=== PATIENT | female | born 1955 | race Caucasian/White ===

== ENCOUNTER → 2020-11-09 10:06 | Outpatient (REF) | payer OTHER, SELFPAY | LOC: ANHLAB 10:06 | PROVIDERS: PCP Family Medicine; Visit Provider Nurse Practitioner | DX: D49.2 Neoplasm of unspecified behavior of bone, soft tissue, and skin (principal); L82.1 Other seborrheic keratosis; L81.4 Other melanin hyperpigmentation; L57.0 Actinic keratosis | CPT/HCPCS: 88305 ==

== ENCOUNTER → 2020-11-30 13:03 | Outpatient (REF) | payer OTHER, SELFPAY | LOC: ANHLAB 13:03 | PROVIDERS: PCP Family Medicine; Visit Provider Nurse Practitioner | DX: L82.1 Other seborrheic keratosis (principal) | CPT/HCPCS: 88305 ==

== ENCOUNTER → 2022-02-05 10:12 | Outpatient (CLI) | payer OTHER, SELFPAY ==
--- NOTE | ~2022-02-05 | MM_ITS ---
EXAMINATION: MM screening stephy BI w guillermo HISTORY: Screening mammogram, family history of breast cancer in her sister. TECHNIQUE: Craniocaudal and mediolateral oblique 3-D tomosynthesis images were obtained and synthetic 2-D images were generated. CAD analysis was submitted and interpreted. COMPARISON: No prior mammogram is available for comparison at this institution. BREAST PARENCHYMAL COMPOSITION: The breasts are heterogeneously dense, which may obscure small masses . FINDINGS: No suspicious mass, calcification, or architectural distortion are identified in either iveth ast to suggest malignancy. IMPRESSION: 1. No mammographic evidence of malignancy. 2. Recommend routine screening mammography in one year. BI-RADS Category 1: Negative Reviewed, dictated and finalized at location A. NESS LAW PROFESSOR
== END ==
PROVIDERS: PCP Family Medicine; Visit Provider Physician Assistant Medical
DX: Z12.31 Encounter for screening mammogram for malignant neoplasm of breast (principal)
CPT/HCPCS: 77063; 77067

== ENCOUNTER → 2022-02-08 12:23 | Outpatient (CLI) | payer OTHER, SELFPAY ==
--- NOTE | ~2022-02-08 | DEXA_ITS ---
Bone Density Report Name: FRIDA RUBY Age: 66 Sex: Female Ethnicity: White Date of : 1955 Indication: postmenopausal; screening for osteoporosis; height loss; asthma or emphysema; hysterectomy; Referring Provider: Neda Perkins Study: Bone densitometry was performed. Exam Date: February 08, 2022 Accession number: [id number] Bone Density: Region BMD T-score Z-score Classification AP Spine (L3, L4) 1.128 0.2 2.3 Normal Femoral Neck (Left) 0.797 -0.5 1.2 Normal Total Hip (Left) 1.126 1.5 2.9 Normal Femoral Neck (Right) 0.831 -0.2 1.5 Normal Total Hip (Right) 1.028 0.7 2.1 Normal Total Hip Mean 1.077 1.1 2.5 Normal World Health Organization criteria for BMD impression classify patients as: Normal (T-score at or above -1.0), Osteopenia (T-score between -1.0 and -2.5), or Osteoporosis (T-score at or below -2.5). 10-year Fracture Risk: FRAX not reported because: All T-scores for Spine Total, Hip Total, Femoral Neck at or above -1.0 Previous Exams: Region Exam Age BMD T-score BMD Change BMD Change Date g/cm2 vs Baseline vs Previous AP Spine(L3, L4) 02/08/2022 66 1.128 0.2 0.031* 0.031* 07/23/2016 60 1.098 0.0 Total Hip(Left) 02/08/2022 66 1.126 1.5 0.013 0.013 07/23/2016 60 1.114 1.4 Total Hip(Right) 02/08/2022 66 1.028 0.7 -0.026 -0.026 07/23/2016 60 1.054 0.9 *Denotes significance at 95% confidence level, LSC for AP Spine = 0.022 g/cm2, LSC for Total Hip = 0.027 g/cm2 Clinical Information Provided by Patient: Has the following medical conditions: Asthma or Emphysema, Hysterectomy Patient maximum height was 59.5 Menopause Age: 54 No regular weight bearing exercise Does not regularly consume dairy products Drinks caffeinated beverages Onset of menses at age 9 Number of children 2 Impression: The patient has normal bone mass. No significant bone loss was observed. Discussion: BONE DENSITY IS ABOVE THE MINIMUM DESIRABLE LEVEL AT ALL SKELETAL SITES TESTED. This patient?s bone mineral density is above the minimum desirable level (T-score -1.0 or better) at all sites measured. The patient should follow a healthful lifestyle (good nutrition with adequate calcium and vitamin D, and appropriate weight-bearing exercise). Follow-Up: Consider repeating this study in 5 years or sooner if there is some new clinical indication. Reported by: [facility] on
== END ==
PROVIDERS: PCP Family Medicine; Visit Provider Physician Assistant Medical
DX: Z13.820 Encounter for screening for osteoporosis (principal); Z78.0 Asymptomatic menopausal state
CPT/HCPCS: 77080

== ENCOUNTER → 2022-02-21 10:15 | Outpatient (CLI) | payer OTHER, SELFPAY ==
--- NOTE | ~2022-02-21 | XR_ITS ---
Right Knee Technique: AP, lateral, and sunrise views were obtained. Clinical History: Pain Findings: No fracture or dislocation is seen. Moderate tricompartmental degenerative changes present, with extensive osteophyte formation. Soft tissues are unremarkable. No joint effusion is seen. Impression: Moderate tricompartmental osteoarthritis. No acute fracture or dislocation. Reviewed, dictated and finalized at location [] ICAL SERVICES TECH Impression: Moderate tricompartmental osteoarthritis. No acute fracture or dislocation.
== END ==
PROVIDERS: PCP Family Medicine; Visit Provider Nurse Practitioner Family
DX: M17.11 Unilateral primary osteoarthritis, right knee (principal)
CPT/HCPCS: 73562

== ENCOUNTER 2022-05-08 11:00 | Outpatient (RCR) | payer MEDICARE, SELFPAY ==
--- NOTE | 2022-03-13 11:54 | PTOPEVAL1 ---
Assessment and note entered by Adriana Phillips, PT, DPT Evaluation Information Assessment Status Evaluation Diagnosis R knee pain Onset 2 months Subjective Information Pt states she has a lot of knee pain, she states in the last couple of days this has gotten better. She states she did not initial think it was arthritis because her pain increases as the day goes on. She states she mainly has pain in the knee but sometimes it radiates either up to the thigh or down to the calf from the knee. She states household distances are tolerable but anything greater than this her pain starts to increase. Pt reports she can sit for as long as she wants, standing longer than 10 mins starts to increase her pain to where she needs to sit down. She reports 1/10 pain currently and 10/10 at the worst in the last week. She states she would like to be able to walk further, have less pain, and be able to stand/walk for 30-60 mins. Reported Pain Level Pain Score 1: Self Report Assessment PT Clinical Summary Argelia Francois) presents to therapy today for her initial evaluation with a diagnosis R knee pain. Today she demonstrates decreased active knee flexion and extension compared to normal and to her uninvolved side, active motion is currently 0 - -10 - 90. She demonstrates good strength through manual muscle testing but decreased functional strength presented by significant gait deviations, increase UE support needed for safe stair ambulation, inability to perform a functional squat, and poor walking and standing tolerance. Skilled physical therapy services are indicated to address the deficits noted above, to manage pain, and to improve functional mobility to promote optimal independance. Plan of Care Interventions Electrical Stimulation,Gait Training,Hot Pack/Cold Pack,Manual Therapy,Neuro Re-education,Patient/ Caregiver Educati,Therapeutic Activities, Therapeutic Exercise,Ultrasound PT Services Indicated Yes Treatment Frequency and 2x/wk for 4 wks Duration These treatments will address the objective and functional deficits as defined above. The patient will be advanced safely and appropriately in order for the patient to progress towards his/her prior level of function. Additional exercises will be introduced and as well as a comprehensive home exercise program upo
--- NOTE | 2022-04-10 09:54 | PTOPPROG ---
Assessment and note entered by Adriana Phillips, PT, DPT Evaluation Information Assessment Status Progress Diagnosis R knee pain Onset 2 months Subjective Information Pt states things are going well and she can already tell improvement. She states getting up from a chair is easier, her pain is less intense and less frequency. She states there are some days where she still needs to rest more and needs to ice her knees after doing a lot of work, but this is becoming less frequent as well. She states she can stand for at least 30 min before needing to sit. She reports improved confidence with walking on uneven surfaces and stepping up on curbs. Pt reports 40% improvement in overall symptoms. Assessment PT Clinical Summary Argelia Yip presents to therapy today for her progress report following 7 visits of skilled therapy to treat her larisa knee pain. Today she demonstrates minimal changes in active and passive knee ROM but has made some improvement in her knee strength. She demonstrates improved functional strength with improved times on her 5xSTS and improved distance during her 2 min walk test. She continues to have decreased balance from expected. Continuation of skilled physical therapy services are indicated to address the remaining deficits, to continue to improve standing and walking tolerance, and to promote unlimited functional mobility. Plan of Care Interventions Electrical Stimulation,Gait Training,Hot Pack/Cold Pack,Manual Therapy,Neuro Re-education,Patient/ Caregiver Educati,Therapeutic Activities, Therapeutic Exercise,Ultrasound PT Services Indicated Yes Treatment Frequency and 1x/wk for 4 wks Duration These treatments will address the objective and functional deficits as defined above. The patient will be advanced safely and appropriately in order for the patient to progress towards his/her prior level of function. Additional exercises will be introduced and as well as a comprehensive home exercise program upon discharge, if needed, ?to ensure carryover of functional gains achieved in the clinic. This treatment plan has been reviewed and agreement upon by the patient.
--- NOTE | 2022-04-11 10:06 | PCPTNOTE ---
Patient called to say she could not make it to appointment.
--- NOTE | 2022-05-01 08:58 | PCPTNOTE ---
Patient canceled this date because she is doing well and states she will come back for reeval.
--- NOTE | 2022-05-08 11:37 | PTOPDC ---
Assessment and note entered by Adriana Phillips, PT, DPT Evaluation Information Assessment Status Discharge Diagnosis R knee pain Onset 2 months Subjective Information Pt states she is doing great. She states she has been walking on the treadmill 20 mins at a time, 5 -6 days a week. She states she was up on her feet for 3 hours straight over the weekend and her pain increased after that. Reported Pain Level Pain Score 1: Self Report Assessment PT Clinical Summary Argelia Yip presents to therapy today for her progress report following 9 visits of skilled therapy to treat her R knee pain. Today she follows up after 3 weeks of participation in her HEP IND. She states she is progressing well and seeing slow improvements. She has progressed well towards her therapy goals and now has a consistent exercise routine. She will be discharged at this time. Plan of Care PT Services Indicated No Treatment Frequency and to be discharged Duration
== END 2022-05-08 13:39 | disposition home or self-care (01) ==
LOC: ANHGOSHPT 11:00
PROVIDERS: PCP Family Medicine; Visit Provider Nurse Practitioner Family
DX: M25.569 Pain in unspecified knee (principal)
CPT/HCPCS: 97110; 97112; 97140; 97161; 97530

== ENCOUNTER 2022-11-19 08:00 | Outpatient (NON) | payer MEDICARE, SELFPAY | END 2022-11-19 08:01 | disposition home or self-care (01) | LOC: ANHLAB 11-20 12:28 | PROVIDERS: PCP Family Medicine; Visit Provider Nurse Practitioner | DX: D23.5 Other benign neoplasm of skin of trunk (principal) | CPT/HCPCS: 88305 ==

== ENCOUNTER 2023-06-11 14:08 | Outpatient (CLI) | payer MEDICARE, SELFPAY ==
--- NOTE | ~2023-06-11 | MM_ITS ---
EXAMINATION: MM screening stephy BI w guillermo HISTORY: Screening TECHNIQUE: Craniocaudal and mediolateral oblique 3-D tomosynthesis images were obtained and synthetic 2-D images were generated. CAD analysis was submitted and interpreted. COMPARISON: 02/05/2022 BREAST PARENCHYMAL COMPOSITION: Dense: The breasts are heterogeneously dense, which may obscure small masses FINDINGS: There is no evidence of suspicious mass, calcification, or architectural distortion to sugg est malignancy in either breast. There has been no suspicious interval change. IMPRESSION: 1. No mammographic evidence of malignancy. 2. Recommend routine screening mammography in one year. BI-RADS Category 1: Negative Reviewed, dictated and finalized at location A.
== END 2023-06-11 14:09 ==
LOC: MICIMG 14:09
PROVIDERS: PCP Physician Assistant Medical; Visit Provider Physician Assistant Medical
DX: Z12.31 Encounter for screening mammogram for malignant neoplasm of breast (principal)
CPT/HCPCS: 77063; 77067

== ENCOUNTER 2024-03-24 11:10 | Outpatient (CLI) | payer MEDICARE, SELFPAY ==
--- NOTE | ~2024-03-24 | US_ITS ---
BILATERAL LOWER EXTREMITY VENOUS ULTRASOUND Ordering provider: Neda Perkins, PAC History: . M79.89 - Other specified soft tissue disorders . Comparison: None. FINDINGS: RIGHT LOWER EXTREMITY VEINS: --COMMON FEMORAL: Patent and free of thrombus. Normal compressibility, phasic flow and augmentation. --PROXIMAL SUPERFICIAL FEMORAL: Patent and free of thrombus. Normal compressibility, phasic flow and augmentation. --DISTAL SUPERFICIAL FEMORAL: Patent and free of thrombus. Normal compressibility, phasic flow and au gmentation. --POPLITEAL: Patent and free of thrombus. Normal compressibility, phasic flow and augmentation. --POSTERIOR TIBIAL: Patent and free of thrombus. Normal compressibility, phasic flow and augmentation . LEFT LOWER EXTREMITY VEINS: --COMMON FEMORAL: Patent and free of thrombus. Normal compressibility, phasic flow and augmentation. --PROXIMAL SUPERFICIAL FEMORAL: Patent and free of thrombus. Normal compressibility, phasic flow and augmentation. --DISTAL SUPERFICIAL FEMORAL: Patent and free of thrombus. Normal compressibility, phasic flow and au gmentation. --POPLITEAL: Patent and free of thrombus. Normal compressibility, phasic flow and augmentation. --POSTERIOR TIBIAL: Patent and free of thrombus. Normal compressibility, phasic flow and augmentation . IMPRESSION: Negative bilateral lower extremity venous US. No deep vein thrombosis. Reviewed, dictated and finalized at location A. RLOCKING PAVEMENT INSTALLER
== END 2024-03-24 11:11 | disposition home or self-care (01) ==
PROVIDERS: PCP Family Medicine; Visit Provider Physician Assistant Medical
DX: M79.89 Other specified soft tissue disorders (principal)
CPT/HCPCS: 93970

== ENCOUNTER 2024-07-31 08:14 | Outpatient (CLI) | payer MEDICARE, SELFPAY ==
--- NOTE | ~2024-07-31 | MM_ITS ---
EXAMINATION: MM screening stephy BI w guillermo HISTORY: Screening TECHNIQUE: Craniocaudal and mediolateral oblique 3-D tomosynthesis images were obtained and synthetic 2-D images were generated. CAD analysis was submitted and interpreted. COMPARISON: Comparison to multiple prior studies sequentially, with oldest reviewed study dated 01/09. BREAST PARENCHYMAL COMPOSITION: Dense: The breasts are heterogeneously dense, which may obscure small masses FINDINGS: There is no evidence of suspicious mass, calcification, or architectural distortion to sugg est malignancy in either breast. There has been no suspicious interval change. IMPRESSION: 1. No mammographic evidence of malignancy. 2. Recommend routine screening mammography in one year. BI-RADS Category 1: Negative Reviewed, dictated and finalized at location A.
== END 2024-07-31 08:15 | disposition home or self-care (01) ==
LOC: MICIMG 08:16
PROVIDERS: PCP Family Medicine; Visit Provider Family Medicine
DX: Z12.31 Encounter for screening mammogram for malignant neoplasm of breast (principal)
CPT/HCPCS: 77063; 77067

== ENCOUNTER 2025-02-02 01:35 | Day surgery (SDC) | payer MEDICARE, SELFPAY ==
[2025-01-24 13:30] VITALS: BMI 50.7
--- OUTSIDE RECORDS SUMMARY | 2025-02-02 01:38 | XMS_ITS | Clinical Summary ---
Author Organization [facility] Administrative Offices Address [address] [place] [address] Care Team Providers Care Director Market Intelligence Name Role Phone Unavailable Primary Care Provider Unavailabl e Social History Tobacco Use Types Packs/Day Years Used Date Smoking Tobacco: Never Assessed Comments Unknown Sex and Gender Information Value Date Recorded Sex Assigned at Not on file Legal Sex Female 2:38 PM CDT Gender Identity Not on file Sexual Orientation Not on file Plan of Treatment Health Maintenance Due Date Last Done Comments DTAP/TDAP/TD VACCINES (1 - Tdap) 1973 COLORECTAL SCREENING 10/08/1999 Colorectal Cancer Screening 10/08/1999 FIT-DNA Q 3 years 10/08/1999 FIT/FOBT Q 1 year 10/08/1999 Flex Sig/CT Colonography Q 5 years 10/08/1999 PNEUMOCOCCAL VACCINE 50+ YEARS (1 of 1 - PCV) 10/08/19 05 ZOSTER VACCINE (1 of 2) 2004 BREAST CANCER SCREENING 08/21/2019 08/20/2018 OSTEOPOROSIS SCREENING 10/08/2019 INFLUENZA VACCINE (#1) 2024 RSV VACCINE (60+ or ) (1 - 1-dose 75+ series) 2029 Procedures Procedure Name Priority Date/Time Associated Diagnosis Comments MAMMO SCREEN BILAT W OR WO CAD Routine 08/20/2018 11:30 AM CDT Visit for screening mammogram from Last 3 Months or Most Recently Relevant to Health Maintenance Results * MAMMO SCREEN BILAT W OR WO CAD (08/20/2018 11:30 AM CDT) Anatomical Region Laterality Modality Breast Bilateral Mammography 08/20/2018 11:3 0 AM CDT Addenda Addendum by Mg Saunders MD on 08/28/2018 7:10 AM CDT ADDENDUM: Outside studies made available for review from [facility] in [facility] dated 07/11/2015, 07/11/2011, 01/12/2010 and 10/21/2008. FINDINGS: The parenchymal pattern of the breasts is unchanged from the previous studies with no concerning developing dominant masses, microcalcifications or focal areas of architectural distortion. IMPRESSION: 1. No concerning developing abnormality identified. OVERALL FINAL ASSESSMENT: BI-RADS CATEGORY 1: Negative RECOMMENDATIONS: 1. Recommend annual mammography. Impressions 08/25/2018 8:11 AM CDT IMPRESSION: 1. Need outside comparisons. OVERALL FINAL ASSESSMENT: BI-RADS CATEGORY 0: Incomplete: Needs prior mammograms for comparison. RECOMMENDATIONS: 1. Recommend obtain outside studies for comparison. An addendum will be dictated when these films become available. Narrative 08/25/2018 8:11 AM CDT BILATERAL SCREENING DIGITAL MAMMOGRAM WITH CAD DATE: 08/20/2018 11:30 AM DICTATION LOCATION: [facility] HISTORY: Routine yearly screening exam. TECHNIQUE: Standard images were obtained of both breasts on a digital system. CAD was utilized. COMPARISON: None available. BREAST COMPOSITION: Heterogeneously dense, which limits the sensitivity of mammography. FINDINGS: Comparison will be obtained to assure stability of the parenchymal pattern. An addendum will be dictated when these films are made available. Procedure Note Mg Saunders MD - 08/25/2018 BILATERAL SCREENING DIGITAL MAMMOGRAM WITH CAD DATE: 08/20/2018 11:30 AM DICTATION LOCATION: [facility] HISTORY: Routine yearly screening exam. TECHNIQUE: Standard images were obtained of both breasts on a digital system. CAD was utilized. COMPARISON: None available. BREAST COMPOSITION: Heterogeneously dense, which limits the sensitivity of mammography. FINDINGS: Comparison will be obtained to assure stability of the parenchymal pattern. An addendum will be dictated when these films are made available. IMPRESSION: 1. Need outside comparisons. OVERALL FINAL ASSESSMENT: BI-RADS CATEGORY 0: Incomplete: Needs prior mammograms for comparison. RECOMMENDATIONS: 1. Recommend obtain outside studies for comparison. An addendum will be dictated when these films become available. us Maynorgermán Garcia MD MAMMO ORDERABLES Edited Result - Final from Last 3 Months or Most Recently Relevant to Health Maintenance Insurance [facility] BLUE ACCESS CHOICE
--- OUTSIDE RECORDS SUMMARY | 2025-02-02 01:38 | XMS_ITS | Clinical Summary ---
Author Organization [facility] Address [address], [address] [address] Phone Care Team Providers Care Cloth Printer Helper Name Role Phone GregorioNedae Primary Care Provider [phone] Allergies No known active allergies Medications lisinopril (PRINIVIL, ZESTRIL) 10 MG Tablet Take 10 mg by mouth daily. Active ALBUTEROL IN take by inhalation. Active Fluticasone Furoate-Vilanter ol (BREO ELLIPTA IN) take by inhalation. Active Family History Medical History Relation Name Comments Cancer Maternal Aunt breast Cancer Maternal Grandmother uterine Cancer Sister breast Relation Name Status Comments Maternal Aunt Maternal Grandmother Sister Social History Tobacco Use Types Packs/Day Years Used Date Smoking Tobacco: Former Cigarettes 0.5 25 0 04/25/1992 - 04/25/2017 Smokeless Tobacco: Never Comments:quit in 2007 Alcohol Use Standard Drinks/Week Comments Yes 0 (1 standard drink = 0.6 oz pur e alcohol) one drink every few months Comments Unknown Sex and Gender Information Value Date Recorded Sex Assigned at Not on file Legal Sex Female 2:11 PM BI CONSULTANT Gender Identity Not on file Sexual Orientation Not on file Occupation Industry Job Start Date Job End Date Works at [employer] Not on file Not on file Not on file Last Filed Vital Signs Vital Sign Reading Time Taken Comments Blood Pressure 121/60 04/25/2017 9:06 AM BI CONSULTANT Pulse 72 04/25/2017 7:45 AM BI CONSULTANT Temperature 36 C (96.8 F) 04/25/2017 9:06 AM BI CONSULTANT Respiratory Rate 25 04/25/2017 9:06 AM BI CONSULTANT Oxygen Saturation 97% 04/25/2017 9:06 AM BI CONSULTANT Inhaled Oxygen Concentration - - Weight 57.2 kg (126 lb) 04/21/2017 3:00 PM BI CONSULTANT Height 152.4 cm (5') 04/21/2017 3:00 PM BI CONSULTANT Body Mass Index 24.61 04/21/2017 3:00 PM BI CONSULTANT Plan of Treatment Health Maintenance Due Date Last Done Comments Hepatitis C Virus (HCV) Screening 1955 TdaP Immunization 1955 Cologuard 10/08/1999 Colonoscopy 10/08/1999 Colorectal Cancer Screening 10/08/1999 Immunochemical Fecal Occult Blood 10/08/1999 Pneumococcal Immunization (5 0+ years) (1 of 1 - PCV) 2004 Zoster Immunization (1 of 2) 2004 Influenza Immunization (#1) 2024 SARS-COV-2 Immunization (1 - season) 2024 Respiratory Syncytial Virus (RSV) Immunization (Adult) (1 - 1-dose 75+ series) 2029 Hepatitis B Immunization Aged Out No longer eligible based on patient's age to complete this topic Human Papillomavirus (HPV) Immunization Aged Out No longer eligible b ased on patient's age to complete this topic Meningococcal Immunization (ACWY) Aged Out No longer eligible based on patient's age to complete this topic Rotavirus Immunization Aged Out No lo nger eligible based on patient's age to complete this topic Insurance Care Teams Cloth Printer Helper Relationship Specialty Start Date End Date Neda Perkins [address] [place] [id number] PCP - General Family Medicine 04/25/17
--- OUTSIDE RECORDS SUMMARY | 2025-02-02 01:38 | XMS_ITS | Encounter Summary ---
Author Organization [facility] Address [address] [place] [address] Phone Care Team Providers Care Budget Record Clerk Name Role Phone Sherry Manuel MD Primary Care Provider [phone] Maynor Garcia MD Primary Care Provider [phone] Encounter Details Date Type Department Care Team (Latest Contact Info) Description 04/10/2017 Orders Only [facility] Sybil Figueroa, RN [address] [facility] [address] [place] [address] Social History Tobacco Use Types Packs/Day Years Used Date Smoking Tobacco: Former Comments Unknown Sex and Gender Information Value Date Recorded Sex Assigned at Not on file 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 Gender Identity Not on file Sexual Orientation Not on file documented as of this encounter Plan of Treatment Scheduled Orders Name Type Priority Associated Diagnoses Orde r Schedule Cardiology Document Scan Cardiac Services Ordered: 04/10/2017 Cardiology Document Scan Cardiac Services Ordered: 05/07/2017 documented as of this encounter Visit Diagnoses Not on filedocumented in this encounter Additional Health Concerns Infection Onset Date Last Indicated Resolved Time COVID: Suspected 12/26/2020 12/26/2020 12/26/2020 9:48 PM CDT documented as of this encounter Care Teams Budget Record Clerk Relationship Specialty Start Date End Date Sherry Manuel MD PCP - General 02/04/17 04/10/22 Maynor Garcia MD PCP - General Family Medicine 04/11/22 documented as of this encounter
--- OUTSIDE RECORDS SUMMARY | 2025-02-02 01:38 | XMS_ITS | Encounter Summary ---
Author Organization [facility] Address [address] [place] [address] Phone Care Team Providers Care Peoplesoft Taleo Manager Name Role Phone Sherry Manuel MD Primary Care Provider [phone] Maynor Garcia MD Primary Care Provider [phone] Encounter Details Date Type Department Care Team (Latest Contact Info) Description 11/19/2021 Orders Only [facility] WGT Scanning, Provider Social History Tobacco Use Types Packs/Day Years Used Date Smoking Tobacco: Former Comments Unknown Sex and Gender Information Value Date Recorded Sex Assigned at Not on file Legal 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 Gender Identity Not on file Sexual Orientation Not on file documented as of this encounter Plan of Treatment Not on file documented as of this encounter Procedures Procedure Name Priority Date/Time Associated Diagnosis Comments SCAN - LABS 11/19/2021 documented in this encounter Results * SCAN - LABS (11/19/2021) us Provider Scanning Edited Result - Final documented in this encounter Visit Diagnoses Not on filedocumented in this encounter Care Teams Peoplesoft Taleo Manager Relationship Specialty Start Date End Date Sherry Manuel MD PCP - General 02/04/17 04/10/22 Maynor Garcia MD PCP - General Family Medicine 04/11/22 documented as of this encounter
--- OUTSIDE RECORDS SUMMARY | 2025-02-02 01:38 | XMS_ITS | Encounter Summary ---
Author Organization [facility] Address [address] [place] [address] Phone Care Team Providers Care Diesel Engine Mechanic Name Role Phone Maynor Garcia MD Primary Care Provider [phone] Encounter Details Date Type Department Care Team (Latest Contact Info) Description 04/01/2024 Orders Only FRIEND CARDIOLOGY Sybil Figueroa, RN [address] [facility] [address] [place] [address] Social History Tobacco Use Types Packs/Day Years Used Date Smoking Tobacco: Former Cigarettes 1 15.6 0 03/10/1992 - 10/09/2007 Smokeless Tobacco: Never Comments Unknown Sex and Gender Information Value Date Recorded Sex Assigned at Not on file Legal Sex Female 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
--- OUTSIDE RECORDS SUMMARY | 2025-02-02 01:38 | XMS_ITS | Encounter Summary ---
Author Organization [facility] Address [address] [place] [address] Phone Care Team Providers Care Manager Agriculture Name Role Phone Maynor Garcia MD Primary Care Provider [phone] Encounter Details Date Type Department Care Team (Latest Contact Info) Description 04/12/2022 Orders Only FRIEND IM WGT Scanning, Provider Social History Tobacco Use Types Packs/Day Years Used Date Smoking Tobacco: Former Comments Unknown Sex and Gender Information Value Date Recorded Sex Assigned at Not on file 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
--- OUTSIDE RECORDS SUMMARY | 2025-02-02 01:38 | XMS_ITS | Clinical Summary ---
Author Organization [facility] Address [address] [place] [address] Care Team Providers Care Residential Door Unit Installer Name Role Phone Maynor Garcia MD Primary Care Provider [phone] Allergies No known active allergies Medications Ozempic 0.25 mg or 0.5 mg(2 mg/1.5 mL) pen injector injection 1 Active rosuvastatin (CRESTOR) 10 mg tablet 1 Active meloxicam (MOBIC) 15 mg tablet Active Trelegy Ellipta 100-62.5-25 mcg inhaler 1 Active gabapentin (NEURONTIN) 300 mg capsule 3 2 Active albuterol HFA (PROVENTIL HFA,VENTOLIN HFA,PROAIR HFA) 90 mcg/actuation inhaler 3 Active diclofenac sodium 3 % gel APPLY TOPICALLY TO THE AFFECTED AREA TWICE DAILY 3 Active ketoconazole (NIZORAL) 2 % cream APPLY TOPICALLY TO THE AFFECTED AREA TWICE DAILY 5 Active predniSONE (DELTASONE) 10 mg tablet TAKE 1 TABLET BY MOUTH TWICE DAILY FOR 10 DAYS. HOLD MELOXICAM WHILE TAKING PREDNISONE 5 Active sertraline (ZOLOFT) 25 mg tablet Take 1 tablet (25 mg total) by mouth daily 5 Active vibegron (Gemtesa) 75 mg tablet Take 75 mg by mouth daily Active dilTIAZem CD/XR/XT (CARDIZEM CD,DILACOR XR) 120 mg 24 hr capsule Take 1 capsule (120 mg total) by mouth daily 90 capsule 3 05/05/19 Active lisinopriL (PRINIVIL,ZESTR IL) 20 mg tablet Take 20mg in AM and 10mg in PM 135 tablet 3 5 Active hydroCHLOROthia zide (MICROZIDE) 12.5 mg capsule Take 1 capsule (12.5 mg total) by mouth every morning 30 capsule 09/04/19 Active Active Problems Problem Noted Date Diagnosed Date Vitamin D deficiency 01/09/2023 Class 3 severe obesity with body mass index (BMI) of 45.0 to 49.9 in adult 04/11/2022 Assessment & Plan (09/19/2022 8:59 AM CDT): Obesity is improving with treatment. Diet interventions: as noted. Regular aerobic exercise program discussed. Plan- Continue pharmacotherapy. Continue diet/exercise interventions as discussed. Follow up with Dr. Bearden in [] 1 month; [] 2 months; [x] 3 months; [] 6 months; [] Other: Assessment & Plan (07/03/2022 11:05 PM CDT): Obesity is worse. Plan: Diet interventions: as noted.., Regular aerobic exercise program discussed. and Medication as prescribed. 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 General weight loss/lifestyle modification strategies discussed (elicit support from others; identify saboteurs; non-food rewards, etc). Diet interventions: as noted. Recommendations provided in AVS. Informal exercise measures discussed, e.g. taking stairs instead of elevator. Regular aerobic exercise program discussed. More detailed recommendations pending review of labs (request from recent per PCP) and food record. Weight loss counseling, encounter for 04/11/2022 Assessment & Plan (09/19/2022 10:41 AM CDT): Reviewed calorie restriction based on BMR as previously detailed. Reviewed recommendation/goal of >/= 150 minutes/week moderate-intensity aerobic exercise. Asked to try to track consistently with [employer] trisha for at least 1 week to help identify calorie/carb/protein intake. Assessment & Plan (07/03/2022 11:04 PM CDT): Reviewed calorie restriction based on BMR as previously detailed. Reviewed recommendation/goal of >/= 150 minutes/week moderate-intensity aerobic exercise. Asked to keep detailed food diary for at least 1 week and bring to next visit and/or continue tracking on phone. Assessment & Plan (04/11/2022 8:21 PM FOREIGN SERVICE TEACHER): Discussed that significant health benefits/risk reduction may be seen with even 5% weight loss. Discussed that weight loss will require calorie deficit. Calculated basal metabolic rate and estimated total energy expenditure; discussed 500-1000 kcal/day deficit to lose 1-2 lb per week. Asked to keep detailed food diary for at least 1 week and bring to next visit. Discussed setting SMART goals. Discussed relatively small, although significant, role of exercise in weight loss; greater importance in weight maintenance as shown in Look Ahead study and National Weight Control Registry. Discussed recommendation/goal for 150 minutes per week moderate-intensity aerobic exercise. Patient overweight 04/11/2022 Metabolic and nutritional disorder 04/11/2022 Assessment & Plan (09/19/2022 11:59 AM CDT): Continue low-carb (<150 g/day), low-glycemic diet. Continue semaglutide. Assessment & Plan (07/03/2022 11:04 PM CDT): Labs as ordered. Reviewed most recent labs available. Continue low-carb (<150 g/day), low-glycemic diet. Continue semaglutide -- plan to increase pending labs. Assessment & Plan (04/11/2022 8:24 PM FOREIGN SERVICE TEACHER): Labs requested from recently done per PCP. Discussed increased risk for DM in setting of obesity. Discussed insulin resistance including effect on weight and risk for progression to diabetes. Recommended low-carb, low-glycemic diet; choose whole grains and avoid more highly processed carbohydrates. Discussed potential benefits of this w/r/t gut microbiome. Referred to ADA and [facility] websites for additional information on topics including glycemic index/carbohydrate choices, protein sources. More detailed recommendations pending review of labs and food record. Continue semaglutide. Fatigue 04/11/2022 Assessment & Plan (04/11/2022 8:25 PM FOREIGN SERVICE TEACHER): Await labs, if needed vitamin and iron levels could be checked. Discussed importance of adequate sleep; good sleep hygiene in controlling weight as well as for overall health. Snores 04/11/2022 Assessment & Plan (04/11/2022 8:26 PM FOREIGN SERVICE TEACHER): Discussed comorbidities associated with sleep apnea, including effects on weight, and stressed importance of adequate treatment if present. Recommended to discuss possible sleep study with PCP. Carpal tunnel syndrome 12/19/2015 Numbness 12/19/2015 Knee pain 10/08/2010 Immunizations Immunization Administration Dates Next Due Influenza, Quadrivalent, Hig h Dose, Preservative Free, Intrr 01/21/2021,12/18/2019 Influenza, Quadrivalent, Split, Intramuscular Pneumococcal Conjugate PCV 13 09/04/2015 ZOSTER Recombinant 04/21/2021,01/21/2021 Surgical History Surgery Date Site/Laterality Comments NC VAGINAL HYSTERECTOMY UTERUS 250 GM/< Vaginal Hysterectomy - (Added by TW Conv) HYSTERECTOMY 2009 partial Medical History Medical History Date Comments Personal history of other di seases of the musculoskeletal system and connective tissue History of arthritis - (Adde d by TW Conv) Personal history of other di seases of the respiratory system History of asthma - (Added b y TW Conv) Personal history of other di seases of the respiratory system History of bronchitis - (Add ed by TW Conv) Shortness of breath Shortness of breath on exertion - (Added by TW Conv) Encounter for long-term (cur rent) use of steroids Chronic use of steroids - (A dded by TW Conv) Arthritis Asthma Hypertension Family History Medical History Relation Name Comments Alcohol abuse Brother Omega COPD Brother Omega Hypertension Brother Omega Obesity Brother Omega Memory loss Father Omega Sr Arthritis Mother Loren Dementia Mother Loren Family history of dementia - (Added by TW Conv) Memory loss Mother Loren Memory loss Sister Tawny Relation Name Status Comments Brother Omega Father Omega Sr Mother oLren Sister Tawny Social History Tobacco Use Types Packs/Day Years Used Date Smoking Tobacco: Former Cigarettes 1 15.6 0 03/10/1992 - 10/09/2007 Passive Smoke Exposure: Never Smokeless Tobacco: Never Tobacco Cessation:Counseling Given: Not Answered Comments Unknown Sex and Gender Information Value Date Recorded Sex Assigned at Not on file Legal Sex Female 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 Gender Identity Not on file Sexual Orientation Not on file Obstetrics History Para Term AB IAB SAB Ectopic Multiple Livin g Live Births 2 2 Date Outcome GA Total Labor Labor/2nd/3rd Weight Sex Type Anes PTL Santa A1 A5 Name Clin Para Para Last Filed Vital Signs Vital Sign Reading Time Taken Comments Blood Pressure 169/89 08/11/2024 1:03 PM CDT Pulse 72 08/11/2024 1:03 PM CDT Temperature 36.8 C (98.3 F) 08/11/2024 1:03 PM CDT Respiratory Rate 16 12/26/2020 11:11 AM CDT Oxygen Saturation 95% 08/11/2024 1:03 PM CDT Inhaled Oxygen Concentration - - Weight 107.5 kg (237 lb) 08/11/2024 1:03 PM CDT Height 148.6 cm (4' 10.5) 08/11/2024 1:03 PM CD T Body Mass Index 48.68 08/11/2024 1:03 PM CDT Plan of Treatment Health Maintenance Due Date Last Done Comments Colon Cancer Screening-Colonoscopy 1954 Depression Screening 1954 Fall Risk Assessment 1954 Hepatitis C Screening 1954 Osteoporosis Screening-Bone Density Scan 1954 DTaP/Tdap/Td Vaccine (1 - Tdap) 1965 Hepatitis B Screening 1972 Pneumococcal vaccine 65+ (2 of 2 - PCV20 or PCV21) 09/03/2016 09/04/2015 Breast Cancer Screening-Mammogram 08/21/2019 019, 07/11/2015 Well Visit 65+ 10/08/2019 Influenza Vaccine (#1) 2024 , 12/18/2019, 01/03/2017 Zoster Vaccine Completed 04/21/2021, 01/21/2021 Procedures Procedure Name Priority Date/Time Associated Diagnosis Comments SCREENING MAMMOGRAM BILATERAL W JACOB Routine 07/11/2015 7:32 AM CDT from Last 3 Months or Most Recently Relevant to Health Maintenance Results * Screening Mammogram Bilateral W Jacob (07/11/2015 7:32 AM CDT) Anatomical Region Laterality Modality Breast Bilateral Mammography 07/11/2015 7:32 AM CDT Impressions 07/11/2015 9:14 AM CDT BI-RAD 2 BENIGN There is no mammographic evidence of malignancy. A 1 year screening mammogram is recommended. The patient has been or will be contacted. The patient will be entered into a reminder system with a target due date of 1 year for her next screening exam. Electronically signed by: Chris Ortiz M.D. ab/penrad:07/11/2015 09:13:48 Dermatology Procedural Physician: Tash CALLAWAY (Leni)(Dewayne), [facility] letter sent: Normal Exam Reading location: BI-RADS: 2 Benign [EOD] Narrative 07/11/2015 9:14 AM CDT - MG BILATERAL DIGITAL SCREENING MAMMOGRAM 3D/2D WITH CAD WITH MEDIOLATERAL OBLIQUE CRANIOCAUDAL: 07/11/2015 The study was acquired using full field digital technology and interpreted from soft copy. Current study was also evaluated with R2 CAD. 2D digital mammographic views, as well as 3D digital tomosynthesis were performed in the CC and MLO projections. CLINICAL: Routine mammogram. Patient denies any problems. Sister with breast cancer. No personal history of breast cancer. COMPARISONS: Comparison is made to exams dated: 07/11/2011 mammogram, 01/12/2010, and 10/21/2008 [facility]. BREAST TISSUE: The tissue of both breasts is heterogeneously dense, which may obscure small masses. FINDINGS: There are benign scattered calcifications in both breasts. No significant masses, calcifications, or other findings are seen in either breast. There has been no significant interval change. Procedure Note Provider, MD Olga - 07/25/2020 - MG BILATERAL DIGITAL SCREENING MAMMOGRAM 3D/2D WITH CAD WITH MEDIOLATERALOBLIQUE CRANIOCAUDAL: 07/11/2015 The study was acquired using full field digital technology and interpretedfrom soft copy. Current study was also evaluated with R2 CAD. 2D digital mammographic views, as well as 3D digital tomosynthesis were performed in the CC and MLO projections. CLINICAL: Routine mammogram. Patient denies any problems. Sister withbreast cancer. No personal history of breast cancer. COMPARISONS: Comparison is made to exams dated: 07/11/2011 mammogram,01/12/2010, and 10/21/2008 [facility]. BREAST TISSUE: The tissue of both breasts is heterogeneously dense, whichmay obscure small masses. FINDINGS: There are benign scattered calcifications in both breasts. No significant masses, calcifications, or other findings are seen ineither breast. There has been no significant interval change. IMPRESSION: BI-RAD 2 BENIGN There is no mammographic evidence of malignancy. A 1 year screeningmammogram is recommended. The patient has been or will be contacted. The patient will be entered into a reminder system with a target due dateof 1 year for her next screening exam. Electronically signed by: Chris villalobos/nathalie:07/11/2015 09:13:48 Dermatology Procedural Physician: Tash CALLAWAY (Leni)(Dewayne), [facility] letter sent: Normal Exam Reading location: BI-RADS: 2 Benign [EOD] us Sherry Manuel MD IMG MAMMO PROCEDURES Final Resu lt from Last 3 Months or Most Recently Relevant to Health Maintenance [place] [address] [place] [address] [employer] OPEN ACCESS [facility] MEDICARE ADVANTAGE UHC MEDICARE ADVANTAGE Care Teams Residential Door Unit Installer Relationship Specialty Start Date End Date Maynor Garcia MD PCP - General Family Medicine 04/11/22
[2025-02-02 09:47] VITALS: BP 162/74; PULSE 78; RESP 22; TEMP 36.3; O2SAT 97
--- NOTE | 2025-02-02 10:04 | P.PNAN_ITS ---
Anes - Initial Pre Proc Eval Procedure: Operation Date: 02/02/25 11:30 Proposed Procedures p Diagnostic Colonoscopy - Moise Orantes MD Date/Time: 02/02/25 10:04 Surgeon: Moise Orantes MD Pre Op Diagnosis: Diarrhea, unspecified Patient Data Age: 69 Gender: F Height: 1.5 m Weight: 113.8 kg Last Vital Signs Temp 36.3 C L 02/02/25 09:47 Pulse 78 02/02/25 09:47 Resp 22 H 02/02/25 09:47 BP 162/74 H 02/02/25 09:47 Pulse Ox 97 02/02/25 09:47 O2 Del Method Room Air 02/02/25 09:47 Allergies Allergy/AdvReac Type Severity Reaction Status Date / Time No Known Allergies Allergy Verified 02/02/25 09:44 Home Medications ?Medication ?Instructions ?Recorded ?Confirmed ?Type albuterol sulfate 90 mcg/actuation See Rx Instructions .Route 05/14/23 02/02/25 Rx aerosol inhaler .COMPLEX #25.5 grams ketoconazole 2 % topical cream 1 applic topical BID #1 5 grams 03/24/24 02/02/25 Rx rosuvastatin 10 mg tablet See Rx Instructions .Route 0 07/12/24 02/02/25 Rx .COMPLEX #100 tabs fluticasone fur. 100 mcg-umeclid See Rx Instructions . Route 08/02/24 02/02/25 Rx 62.5 mcg-vilant 25 mcg .COMPLEX #180 ea inhalat.powder (Trelegy Ellipta) meloxicam 15 mg tablet See Rx Instructions .Route 0 10/10/24 02/02/25 Rx .COMPLEX #100 tabs sertraline 25 mg tablet (Zoloft) 25 mg PO DAILY #90 ta bs 12/10/24 02/02/25 Rx diltiazem HCl 120 mg 120 mg PO Q24H 01/17/2501/09 History capsule,extended release 24 hr, controlled hydrochlorothiazide 12.5 mg capsule 12.5 mg PO DAILY 1 03/19/24 02/02/25 History lisinopril 40 mg tablet 40 mg PO DAILY 01/17/2501/09 History align probiotic 1 cap BYMOUTH DAILY 01/24/25 02/02/25 History diphenoxylate-atropine 2.5 1 tablet PO TID PRN diarrhe a 01/24/25 02/02/25 History mg-0.025 mg tablet (Lomotil) vibegron 75 mg tablet (Gemtesa) See Rx Instructions .R oute 01/24/25 02/02/25 Rx .COMPLEX #30 tabs Patient hx anesthesia problems: none Family hx anesthesia problems: none Results Review: All pre-operative results and documents have been reviewed as part of the pre- operative evaluation. [facility] Past Medical History Medical History Morbid obesity Contact dermatitis Hammer toe of left foot BMI 50.0-59.9, adult Family History Family History Father Family history of Alzheimer's disease Mother Family history of Alzheimer's disease Grandparent Family history of malignant neoplasm of cervix Family history of malignant neoplasm of ovary Sibling Family history of malignant neoplasm of breast in first degree relative Family history of malignant neoplasm of breast Breast cancer Other Family history of malignant neoplasm of uterus Social History Social History Smoking packs per day: 0.75 Smoking cigarettes per day: 15.0 Smoking status: Former smoker Tobacco type: cigarettes Second hand tobacco smoke exposure: No Smoking end date: 03/10/07 Alcohol intake: current Drinks per week: 12 Substance use: never Substance use type: does not use Current Housing: Decline to Answer Concerned About Future Housing: Decline to Answer Difficulty Paying Gas/Electric Bills: Decline to Answer Difficulty Paying for Meds: Decline to Answer Currently Unemployed: Decline to Answer Education: Decline to Answer Difficulty w/ Childcare or Family Care: Decline to Answer Living arrangements: alone Occupation/Education: occupation 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 Gender identity (if verbalized by the patient): Female Spiritual care concerns: No Anes - Eval Final PreProcedure Day of Procedure 02/02/25 10:04 Patient weight: super morbidly obese Heart: regular rate and rhythm Lungs: decreased breath sounds Airway: Mallampati scale class II Neurological: alert and oriented Last oral intake: >/= 8 hours ASA classification: III Emergent: no Anesthetic plan: proceed Anesthesia type and monitoring: general GIVS and standard monitoring Results Review: All pre-operative results and documents have been reviewed as part of the pre- operative evaluation. Informed Consent: The patient's anesthetic plan and its attendant risks and benefits were discussed with the patient/family/POA. Questions were solicited and answers pr ovided to the satisfaction of the patient/family/POA.
[2025-02-02] MEDS: LACTATED RINGERS 1,000 ML 150 ML IV CONT (10:25)
--- NOTE | 2025-02-02 10:28 | P.HP_ITS ---
History of Present Illness History of Present Illness Consent: Risks, benefits, and alternatives have been discussed and questions answered. Patient agrees to proceed with procedure. Chief complaint: Diarrhea, unspecified Narrative: Argelia Goff is a 69 year old female with last colonoscopy 2018 but lately with diarrhea Review of Systems Review of Systems: All systems reviewed & are unremarkable except as noted in HPI and below PMFSH Past Medical History Medical History Morbid obesity Contact dermatitis Hammer toe of left foot BMI 50.0-59.9, adult Family History Family History Father Family history of Alzheimer's disease Mother Family history of Alzheimer's disease Grandparent Family history of malignant neoplasm of cervix Family history of malignant neoplasm of ovary Sibling Family history of malignant neoplasm of breast in first degree relative Family history of malignant neoplasm of breast Breast cancer Other Family history of malignant neoplasm of uterus Social History Social History Smoking packs per day: 0.75 Smoking cigarettes per day: 15.0 Smoking status: Former smoker Tobacco type: cigarettes Second hand tobacco smoke exposure: No Smoking end date: 03/10/07 Alcohol intake: current Drinks per week: 12 Substance use: never Substance use type: does not use Current Housing: Decline to Answer Concerned About Future Housing: Decline to Answer Difficulty Paying Gas/Electric Bills: Decline to Answer Difficulty Paying for Meds: Decline to Answer Currently Unemployed: Decline to Answer Education: Decline to Answer Difficulty w/ Childcare or Family Care: Decline to Answer Living arrangements: alone Occupation/Education: occupation 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 Gender identity (if verbalized by the patient): Female Spiritual care concerns: No Meds Home Medications and Allergies Home Medications ?Medication ?Instructions ?Recorded ?Confirmed ?Type albuterol sulfate 90 mcg/actuation See Rx Instructions .Route 05/14/23 02/02/25 Rx aerosol inhaler .COMPLEX #25.5 grams ketoconazole 2 % topical cream 1 applic topical BID #1 5 grams 03/24/24 02/02/25 Rx rosuvastatin 10 mg tablet See Rx Instructions .Route 0 07/12/24 02/02/25 Rx .COMPLEX #100 tabs fluticasone fur. 100 mcg-umeclid See Rx Instructions . Route 08/02/24 02/02/25 Rx 62.5 mcg-vilant 25 mcg .COMPLEX #180 ea inhalat.powder (Trelegy Ellipta) meloxicam 15 mg tablet See Rx Instructions .Route 0 10/10/24 02/02/25 Rx .COMPLEX #100 tabs sertraline 25 mg tablet (Zoloft) 25 mg PO DAILY #90 ta bs 12/10/24 02/02/25 Rx diltiazem HCl 120 mg 120 mg PO Q24H 01/17/2501/09 History capsule,extended release 24 hr, controlled hydrochlorothiazide 12.5 mg capsule 12.5 mg PO DAILY 1 03/19/24 02/02/25 History lisinopril 40 mg tablet 40 mg PO DAILY 01/17/2501/09 History align probiotic 1 cap BYMOUTH DAILY 01/24/25 02/02/25 History diphenoxylate-atropine 2.5 1 tablet PO TID PRN diarrhe a 01/24/25 02/02/25 History mg-0.025 mg tablet (Lomotil) vibegron 75 mg tablet (Gemtesa) See Rx Instructions .R oute 01/24/25 02/02/25 Rx .COMPLEX #30 tabs Allergies Allergy/AdvReac Type Severity Reaction Status Date / Time No Known Allergies Allergy Verified 02/02/25 09:44 Vital Signs Vital Signs - 24 hr 02/02/25 09:47 Temperature 97.3 F L Pulse Rate 78 Respiratory Rate 22 H Blood Pressure 162/74 H Pulse Oximetry 97 Oxygen Delivery Room Air Exam Const: General: comfortable and no acute distress Resp: Auscultation: clear to auscultation bilaterally Cardio: Rate: regular rate Rhythm: regular rhythm GI: Inspection: non-distended GI Palp: Yes Soft to palpation Extrem: General: normal to inspection Psych: Mental Status: mental status grossly normal Assessment and Plan Assessment and plan (1) Diarrhea: Qualifiers: Diarrhea type: unspecified type Qualified Code(s): R19.7 - Diarrhea, unspecified Code(s): R19.7 - Diarrhea, unspecified Status: Acute Assessment and Plan: colonoscopy
[2025-02-02 10:40] VITALS: BP 138/74; PULSE 85; RESP 25; O2SAT 99
--- NOTE | 2025-02-02 10:40 | S_PTH ---
PATIENT: Argelia Goff LOC: [facility]#:[id number] AGE/SX: 69/F ROOM: RE02/02/[address]: Moise Orantes MD : 1955 BED: DIS: 02/02/2025 SPEC #: [id number] RECD: 02/02/25 12:45 STATUS: NANETTE RENoel #: [id number] JARED: 02/02/25 10:[address]: Moise Orantes DEPT: [facility] Surgical RECD BY: Libra Rodarte ENTERED: 02/02/25 12:45 SP TYPE: Surgical OTHR DR: Maynor Garcia MD Tissues: A - Colon Biopsy Procedures: Hematoxylin and Eosin Stain Gross and Microscopic Level 4
[2025-02-02 10:50] VITALS: BP 163/83; PULSE 77; RESP 20; O2SAT 99
[2025-02-02 11:00] VITALS: BP 166/82; PULSE 70; RESP 19; O2SAT 99
== END 2025-02-02 11:10 | disposition home or self-care (01) ==
PROVIDERS: PCP Family Medicine; Referring Provider Physician Assistant Medical; Visit Provider Internal Medicine Gastroenterology
PROC: 0DJD8ZZ Inspection of Lower Intestinal Tract, Via Natural or Artificial Opening Endoscopic (ICD-10-PCS; CPT 45378; principal; 2025-02-02 11:30)
DX: R19.7 Diarrhea, unspecified (principal); K57.30 Diverticulosis of large intestine without perforation or abscess without bleeding; K64.4 Residual hemorrhoidal skin tags; Z87.891 Personal history of nicotine dependence; E66.01 Morbid (severe) obesity due to excess calories; Z68.43 Body mass index [BMI] 50.0-59.9, adult
CPT/HCPCS: 45380; 88305; J2704; J7120